=== PATIENT | male | born 1945 | race Asian ===

== ENCOUNTER 2022-05-25 10:25 | Emergency (ER) | payer MEDICARE ==
[~2022-05-25] VITALS: Ht 172.7 cm; Wt 75.0 kg
[~2022-05-25 10:25] MED LIST: AMLO10TA55 PO; ASPI-825 PO; GLIP5TAB11 PO; HYDR25TA PO; LOVA10TA2 PO; METF-445 PO
[2022-05-25] MEDS ORDERED: ASPI-1444 PO (11:58)
[2022-05-25] MEDS ORDERED: LIDOCAINE 5% TRANSDERMAL PATCH TD ONE (12:00)
[2022-05-25] MEDS ORDERED: ACETAMINOPHEN 325 MG TABLET PO ONE (12:00)
[2022-05-25] MEDS ORDERED: LIDO1ADH72 TD (14:00)
[2022-05-25 14:32] VITALS: BP 147/76
== END 2022-05-25 14:33 | disposition home or self-care (01) ==
LOC: EMS 10:37
DX: R07.81 Pleurodynia (principal); M25.512 Pain in left shoulder; E11.9 Type 2 diabetes mellitus without complications; E78.00 Pure hypercholesterolemia, unspecified; I10 Essential (primary) hypertension
CPT/HCPCS: 99283; 71101; 73030; 71100; G0238